=== PATIENT | male | born 1995 | race Caucasian/White ===

== ENCOUNTER 2021-06-01 20:55 | Observation (INO) | payer OTHER ==
[~2021-06-01] VITALS: Ht 177.8 cm; Wt 74.4 kg
[~2021-06-01 20:55] MED LIST: CYCL10TA9 PO
[2021-06-01 21:50] LABS: BILIRUBIN,URINE NEGATIVE (NEGATIVE); CLARITY,URINE CLEAR; COLOR,URINE YELLOW; GLUCOSE, URINE (UA) NEGATIVE (NEGATIVE); KETONES,URINE NEGATIVE (NEGATIVE); LEUKOCYTE ESTERASE ,URINE NEGATIVE (NEGATIVE); NITRITE,URINE NEGATIVE (NEGATIVE); PROTEIN,URINE NEGATIVE (NEGATIVE)
--- NOTE | 2021-06-01 21:55 | ED Abdominal Pain ---
General Chief Complaint: Abdominal/GI Problems Stated Complaint: LOWER BACK PAIN, ABDOMINAL PAIN Nursing Triage Note: c/o mid abdominal/lower back cramping since approx. 1200 today. reports constipation, last bm today. Source of Information: Patient Exam Limitations: No Limitations (SEYMOUR VELÁSQUEZ APRN) History of Present Illness Date Seen by Provider: Jun 01, 2021 Time Seen by Provider: 21:52 Initial Comments To ER with c/o suprapubic abdominal pain since noon today. Hes had a poor appetite so has not eaten since lunch. no fevers, no vomiting though he was nauseated earlier. He initially thought he might be constipated but had two normal BMs today without improvement in symptoms. No urinary symptoms. no flank pain but it does radiate to his low back on both sides. No history of this. Otherwise healthy, no medical history. Had eye surgery as a child for nystagmus he states. Takes no medications. 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 Chews tobacco, drinks 2-3 beers a week. No smoking, no drug use. Timing/Duration: 4-6 Hours Severity/Quality: Moderate Location: Suprapubic Radiation: No Radiation Activities at Onset: None Associated Symptoms: Denies Symptoms (SEYMOUR VELÁSQUEZ APRN) Allergies and Home Medications Allergies Coded Allergies: No Known Drug Allergies (Unverified , 05/31/11) Patient Home Medication List Home Medication List Reviewed: Yes (SEYMOUR VELÁSQUEZ APRN) Hydrocodone/Acetaminophen (Hydrocodone-Acetamin 7.5-325) 1 Each Tablet, 1 EACH PO Q4H Prescribed by: PREM JIMÉNEZ on 06/02/21 1559 Discontinued Medications Cyclobenzaprine Hcl (Cyclobenzaprine Hcl) 10 Mg Tablet, 1 EACH PO Q8HR PRN Discontinued Reason: No Longer Taking Prescribed by: SUNIL WATSON on 06/01/11 0141 Last Action: Discontinued Review of Systems Review of Systems Constitutional: see HPI EENTM: No Symptoms Reported Respiratory: No Symptoms Reported Cardiovascular: No Symptoms Reported Gastrointestinal: See HPI, Abdominal Pain Genitourinary: No Symptoms Reported Musculoskeletal: no symptoms reported Skin: no symptoms reported Psychiatric/Neurological: No Symptoms Reported Endocrine: No Symptoms Reported Hematologic/Lymphatic: No Symptoms Reported (SEYMOUR VELÁSQUEZ APRN) Past Jqsvktw-Xkjqsn-Gcidbg Hx Patient Social History Tobacco Use?: Yes Substance use?: No Alcohol Use?: Yes Alcohol Frequency: Once in a while Pt feels they are or have been: No (SEYMOUR VELÁSQUEZ APRN) Past Medical History Surgery/Hospitalization HX: eye surgery, t/a (SEYMOUR VELÁSQUEZ APRN) Physical Exam Vital Signs Vital Signs - First Documented 06/01/21 21:36 Temp 37.1 Pulse 90 Resp 18 B/P (MAP) 113/60 (77) Pulse Ox 98 O2 Delivery Room Air (FABIOLA,CAROLANN K DO) Vital Signs Capillary Refill : Less Than 3 Seconds (SEYMOUR VELÁSQUEZ APRN) Height/Weight/BMI Height: '" Weight: lbs. oz. kg; 23.00 BMI Method:Stated General Appearance: WD/WN, no apparent distress HEENT: PERRL/EOMI, normal ENT inspection Neck: non-tender, full range of motion Respiratory: no respiratory distress, no accessory muscle use Gastrointestinal: normal bowel sounds, soft, tenderness (suprapubic) Extremities: normal range of motion, non-tender Back: No CVA tenderness (R), No CVA tenderness (L) Neurologic/Psychiatric: alert, normal mood/affect, oriented x 3 Skin: normal color, warm/dry (SEYMOUR VELÁSQUEZ APRN) Progress/Results/Core Measures Results/Orders Lab Results Laboratory Tests Test 06/01/21 21:40 06/01/21 21:50 Range/Units Urine Color YELLOW Urine Clarity CLEAR Urine pH 6.0 5-9 Urine Specific Slater 1.025 H 1.016-1.022 Urine Protein NEGATIVE NEGATIVE Urine Glucose (UA) NEGATIVE NEGATIVE Urine Ketones NEGATIVE NEGATIVE Urine Nitrite NEGATIVE NEGATIVE Urine Bilirubin NEGATIVE NEGATIVE Urine Urobilinogen 1.0 < = 1.0 MG/DL Urine Leukocyte Esterase NEGATIVE NEGATIVE Urine RBC (Auto) NEGATIVE NEGATIVE Urine RBC NONE /HPF Urine WBC NONE /HPF Urine Squamous Epithelial Cells NONE /HPF Urine Renal Epithelial Cells NONE /HPF Urine Crystals NONE /LPF Urine Bacteria NEGATIVE /HPF Urine Casts NONE /LPF Urine Mucus NEGATIVE /LPF Urine Culture Indicated NO White Blood Count 15.1 H 4.3-11.0 10^3/uL Red Blood Count 4.53 4.30-5.52 10^6/uL Hemoglobin 13.9 13.3-17.7 g/dL Hematocrit 40 40-54 % Mean Corpuscular Volume 89 80-99 fL Mean Corpuscular Hemoglobin 31 25-34 pg Mean Corpuscular Hemoglobin Concent 35 32-36 g/dL Red Cell Distribution Width 12.1 10.0-14.5 % Platelet Count 224 130-400 10^3/uL Mean Platelet Volume 11.2 9.0-12.2 fL Immature Granulocyte % (Auto) 0 % Neutrophils (%) (Auto) 80 H 42-75 % Lymphocytes (%) (Auto) 10 L 12-44 % Monocytes (%) (Auto) 9 0-12 % Eosinophils (%) (Auto) 0 0-10 % Basophils (%) (Auto) 0 0-10 % Neutrophils # (Auto) 12.1 H 1.8-7.8 10^3/uL Lymphocytes # (Auto) 1.6 1.0-4.0 10^3/uL Monocytes # (Auto) 1.3 H 0.0-1.0 10^3/uL Eosinophils # (Auto) 0.0 0.0-0.3 10^3/uL Basophils # (Auto) 0.0 0.0-0.1 10^3/uL Immature Granulocyte # (Auto) 0.1 0.0-0.1 10^3/uL Neutrophils % (Manual) 80 % Lymphocytes % (Manual) 10 % Monocytes % (Manual) 10 % Blood Morphology Comment NORMAL Sodium Level 141 135-145 MMOL/L Potassium Level 3.9 3.6-5.0 MMOL/L Chloride Level 103 98-107 MMOL/L Carbon Dioxide Level 22 21-32 MMOL/L Anion Gap 16 H 5-14 MMOL/L Blood Urea Nitrogen 8 7-18 MG/DL Creatinine 0.94 0.60-1.30 MG/DL Estimat Glomerular Filtration Rate 115 BUN/Creatinine Ratio 9 Glucose Level 105 70-105 MG/DL Calcium Level 9.5 8.5-10.1 MG/DL Corrected Calcium 9.1 8.5-10.1 MG/DL Total Bilirubin 0.9 0.1-1.0 MG/DL Aspartate Amino Transf (AST/SGOT) 17 5-34 U/L Alanine Aminotransferase (ALT/SGPT) 20 0-55 U/L Alkaline Phosphatase 61 40-136 U/L Total Protein 7.4 6.4-8.2 GM/DL Albumin 4.5 3.2-4.5 GM/DL (FABIOLA,CAROLANN K DO) Vital Signs/I&O 06/01/21 21:36 Temp 37.1 Pulse 90 Resp 18 B/P (MAP) 113/60 (77) Pulse Ox 98 O2 Delivery Room Air (CAROLANN HICKS DO) 2 Blood Pressure Mean: 77 Departure Communication (Admissions) 2212-Spoke with Dr Jiménez, will admit, NPP after 0200, clear liquids until then. Plan for lap appy tomorrow. will do abx, pain, nausea meds in the interim. Spoke with patient, he is agreeable. (SEYMOUR VELÁSQUEZ APRN) Impression Primary Impression: Appendicitis Disposition: ADMITTED INPATIENT Condition: Stable Admissions Decision to Admit Reason: Admit from ER (General) Decision to Admit/Date: Jun 01, 2021 Time/Decision to Admit Time: 22:06 (SEYMOUR VELÁSQUEZ APRN) Departure-Patient Inst. Referrals: RYAN ZHANG DO (PCP/Family) Primary Care Physician Scripts Hydrocodone/Acetaminophen (Hydrocodone-Acetamin 7.5-325) 1 Each Tablet 1 EACH PO Q4H, #35 TAB Prov: PREM JIMÉNEZ MD 06/02/21 ATTENDING PHYSICIAN NOTE: I WAS PHYSICALLY PRESENT ER PHYSICIAN, BUT I WAS NOT INVOLVED IN ANY DECISION MAKING OR ANY CARE OF THIS PATIENT. (CAROLANN HICKS DO) SEYMOUR VELÁSQUEZ APRN Jun 01, 2021 21:55 CAROLANN HICKS DO Jun 05, 2021 18:23
[2021-06-01 21:59] LABS: BACTERIA,URINE NEGATIVE /HPF
[2021-06-01 21:59] LABS: BASOPHILS % (AUTO) 0 % (0-10); EOSINOPHILS % (AUTO) 0 % (0-10); HEMATOCRIT 40 % (40-54); HEMOGLOBIN 13.9 g/dL (13.3-17.7); LYMPHOCYTES # (AUTO) 1.6 10^3/uL (1.0-4.0); LYMPHOCYTES % (AUTO) 10 % (12-44); MEAN CORPUSCULAR HEMOGLOBIN 31 pg (25-34); MEAN CORPUSCULAR HGB CONC 35 g/dL (32-36); MEAN CORPUSCULAR VOLUME 89 fL (80-99); MEAN PLATELET VOLUME 11.2 fL (9.0-12.2); MONOCYTES # (AUTO) 1.3 10^3/uL (0.0-1.0); MONOCYTES % (AUTO) 9 % (0-12); NEUTROPHILS # (AUTO) 12.1 10^3/uL (1.8-7.8); NEUTROPHILS % (AUTO) 80 % (42-75); PLATELET COUNT 224 10^3/uL (130-400); WHITE BLOOD COUNT 15.1 10^3/uL (4.3-11.0)
[2021-06-01] MEDS ORDERED: KETOROLAC 30 MG/ML VIAL IVP ONE (22:00)
[2021-06-01 22:03] LABS: ALBUMIN 4.5 GM/DL (3.2-4.5); POTASSIUM 3.9 MMOL/L (3.6-5.0)
[2021-06-01 22:04] LABS: CALCIUM 9.5 MG/DL (8.5-10.1)
[2021-06-01 22:05] LABS: TOTAL PROTEIN 7.4 GM/DL (6.4-8.2)
[2021-06-01 22:07] LABS: BILIRUBIN,TOTAL 0.9 MG/DL (0.1-1.0)
--- NOTE | 2021-06-01 22:08 | Diagnostic Imaging Report ---
PROCEDURE: CT urinary tract, rule out kidney stone. TECHNIQUE: Multiple contiguous axial images were obtained through the abdomen and pelvis without the use of intravenous contrast. Auto Exposure Controls were utilized during the CT exam to meet ALARA standards for radiation dose reduction. INDICATION: Abdominal pain. COMPARISON: None. FINDINGS: The heart is unremarkable. The lung bases are clear. The liver, spleen, pancreas, adrenal glands and kidneys have a normal appearance. There is no pathologically enlarged mesenteric or retroperitoneal adenopathy. The bowel loops are nondilated. The appendix is dilated measuring 0.9 cm with mild periappendicular fat stranding. There is no free fluid or free air. No acute osseous abnormalities. Ureters and bladder are normal. There is no free air, loculated collection, or adenopathy in the pelvis. IMPRESSION: Findings suggestive of acute uncomplicated appendicitis. No evidence of perforation or abscess. Recommend surgical consultation and follow-up, as indicated. Dictated by: Dictated on workstation # [id number]
[2021-06-01 22:09] LABS: CREATININE SERUM 0.94 MG/DL (0.60-1.30)
[2021-06-01 22:14] LABS: LYMPHOCYTES % (MANUAL) 10 %; MONOCYTES % (MANUAL) 10 %; NEUTROPHILS % (MANUAL) 80 %; RBC MORPH NORMAL
[2021-06-01] MEDS ORDERED: fentaNYL INJ 100 MCG/2 ML AMP IVP ONE (22:15)
[2021-06-01] MEDS ORDERED: fentaNYL INJ 100 MCG/2 ML AMP IV PRN (23:15)
[2021-06-01] MEDS ORDERED: ACETAMINOPHEN 325 MG TABLET PO PRN (23:15)
[2021-06-01] MEDS ORDERED: ONDANSETRON 4 MG/2 ML (SDV) Z0FRAN IV PRN (23:15)
[2021-06-01 23:42] VITALS: BP 127/68
[2021-06-01] MEDS: metroNIDAZOLE 500 MG/100 ML IVPB (PRE-MIX) IV SCH (23:55)
[2021-06-01] MEDS: CIPROFLOXACIN 400 MG/D5W 200 ML (PRE-MIX) IV SCH (23:55)
[2021-06-01] MEDS: LACTATED RINGERS 1,000 ML IV SCH (23:55)
[2021-06-02] VITALS (10 sets, daily range): BP systolic 99–133; BP diastolic 46–79
[2021-06-02 05:58] LABS: BASOPHILS % (AUTO) 0 % (0-10); EOSINOPHILS % (AUTO) 0 % (0-10); HEMATOCRIT 37 % (40-54); HEMOGLOBIN 12.5 g/dL (13.3-17.7); LYMPHOCYTES # (AUTO) 1.8 10^3/uL (1.0-4.0); LYMPHOCYTES % (AUTO) 19 % (12-44); MEAN CORPUSCULAR HEMOGLOBIN 30 pg (25-34); MEAN CORPUSCULAR HGB CONC 34 g/dL (32-36); MEAN CORPUSCULAR VOLUME 89 fL (80-99); MEAN PLATELET VOLUME 11.6 fL (9.0-12.2); MONOCYTES % (AUTO) 11 % (0-12); NEUTROPHILS # (AUTO) 6.4 10^3/uL (1.8-7.8); NEUTROPHILS % (AUTO) 69 % (42-75); PLATELET COUNT 181 10^3/uL (130-400); WHITE BLOOD COUNT 9.2 10^3/uL (4.3-11.0)
[2021-06-02 06:11] LABS: CALCIUM 9.1 MG/DL (8.5-10.1); CREATININE SERUM 0.89 MG/DL (0.60-1.30); POTASSIUM 3.8 MMOL/L (3.6-5.0)
[2021-06-02] MEDS: LACTATED RINGERS 1,000 ML IV SCH ×2 (08:38→14:52)
[2021-06-02] MEDS: metroNIDAZOLE 500 MG/100 ML IVPB (PRE-MIX) IV SCH (08:45)
[2021-06-02] MEDS: CIPROFLOXACIN 400 MG/D5W 200 ML (PRE-MIX) IV SCH (08:45)
--- NOTE | 2021-06-02 09:43 | Progress Note-Pre Operative ---
Pre-Operative Progress Note H&P Reviewed The H&P was reviewed, patient examined and no changes noted. Date Seen by Provider: Jun 02, 2021 Time Seen by Provider: 09:30 Date H&P Reviewed: Jun 02, 2021 Time H&P Reviewed: 09:30 Pre-Operative Diagnosis: acute appendicitis PREM RAGSDALE MD Jun 02, 2021 09:43
--- NOTE | 2021-06-02 09:48 | HISTORY AND PHYSICAL ---
DATE OF SERVICE: ADMITTING PRIMARY CARE PHYSICIAN: Jeremy De Jesus DO HISTORY OF PRESENT ILLNESS: The patient is a 26-year-old male who presented to the Emergency Department with suprapubic pain with radiation towards the back. He states that it had started earlier that day and he had a poor appetite. He initially thought that this was due to constipation and had two bowel movements without any improvement of symptoms. He states that he was urinating in a normal manner as well. He did not report any fever, no chills. A CT scan was performed, which did show a dilated appendix consistent with noncomplicated appendicitis. PAST MEDICAL HISTORY: History of nystagmus. PAST SURGICAL HISTORY: Correction of his nystagmus. ALLERGIES: No known drug allergies. MEDICATION: Cyclobenzaprine p.r.n. SOCIAL HISTORY: Positive chewing tobacco. Social alcohol. FAMILY HISTORY: Noncontributory. VITAL SIGNS: Temperature 36.4, blood pressure 103/51, pulse 84, respirations 16, pulse ox 99% on room air. REVIEW OF SYSTEMS: Well-nourished male currently in no acute distress. He is not experiencing any shortness of breath or difficulty breathing. No chest pain, palpitations, diaphoresis. Some loss of appetite, however no nausea, no vomiting. No diarrhea, constipation, no red blood per rectum, no dark tarry stools. No fever, chills, no recent inadvertent weight loss. All other review of systems negative. PHYSICAL EXAMINATION: CHEST: Clear. Good breath sounds bilaterally. HEART: Regular, no murmurs. EXTREMITIES: No lower extremity edema, negative Homans sign. HEENT: No scleral icterus. NECK: No cervical lymphadenopathy. ABDOMEN: Soft, nondistended, mild pain in the right lower abdominal quadrant. No peritoneal signs. SKIN: Warm, dry. LABORATORY DATA: WBC 9.2, hemoglobin 12.5, hematocrit 37, platelets 181. BUN 8, creatinine 0.89. ASSESSMENT AND PLAN: A 26-year-old male with acute appendicitis, which is not complicated. We will proceed with IV fluids and IV antibiotics as well as schedule him for a laparoscopic appendectomy on this admission. Job ID: [id number] DocumentID: [id number] Dictated Date: 06/02/2021 09:34:09 Monotyper Date: 06/02/2021 09:47:36 Dictated By: PREM RAGSDALE MD HEALTH SYSTEMMartinez
[2021-06-02] MEDS ORDERED: ROCURONIUM 10 MG/ML 5 ML SYRINGE IV ONE (15:40)
[2021-06-02] MEDS ORDERED: NEOSTIGMINE 3 MG/3 ML VIAL ONE (15:40)
[2021-06-02] MEDS ORDERED: proPOfol 200 MG/20 ML (DIPRIVAN) VIAL IV ONE (15:40)
[2021-06-02] MEDS ORDERED: GLYCOPYRROLATE 0.2 MG/ML (ROBINUL) 2 ML VIAL ONE (15:40)
[2021-06-02] MEDS ORDERED: LIDOCAINE PF 2% 5 ML (XYLOCAINE) VIAL ONE (15:40)
[2021-06-02] MEDS ORDERED: ONDANSETRON 4 MG/2 ML (SDV) Z0FRAN ONE (15:40)
[2021-06-02] MEDS ORDERED: fentaNYL INJ 100 MCG/2 ML AMP ONE (15:41)
[2021-06-02] MEDS ORDERED: MIDAZOLAM 2 MG/2 ML (VERSED) VIAL ONE (15:41)
[2021-06-02] MEDS ORDERED: HYDR-3817 PO (15:59)
--- NOTE | 2021-06-02 15:59 | Discharge Inst-Surgical ---
D/C Lap Instructions-MELYSSA New, Converted, or Re-Newed RX: RX on Chart Follow Up Activity as tolerated Regular Diet Symptoms to Report: Fever over 101 degree F, Nausea/Vomiting Infection Signs and Symptoms to report: Increased redness, Foul odor of wound, Increased drainage Bathing instructions: May shower Operative Area Clean/Dry; Keep incision clean/dry If any problems/questions: Contact your physician or go to Emergency Room PREM RAGSDALE MD Jun 02, 2021 15:59
[2021-06-02] MEDS ORDERED: ceFAZolin INJECTION 1,000 MG VIAL IV NR (16:00)
[2021-06-02] MEDS ORDERED: LIDOCAINE/EPI 2% 1:200,00 (XYLOCAINE) 20 ML VIAL ONE (16:25)
[2021-06-02] MEDS ORDERED: SEVOFLURANE (ULTANE) 15 ML INHAL SOLN ONE (16:42)
[2021-06-02] MEDS ORDERED: LACTATED RINGERS 1,000 ML IV PRN (16:45)
--- NOTE | 2021-06-02 16:47 | Progress Note-Post Operative ---
Post-Operative Progess Note Surgeon (s)/Water Pumper (s) Surgeon PREM RAGSDALE MD Water Pumper: leela jackson HEAD COUNSELOR Pre-Operative Diagnosis acute appendicitis Post-Operative Diagnosis same Procedure & Operative Findings Date of Procedure 06/02/21 Procedure Performed/Findings laparoscopic appendectomy Anesthesia Type get Estimated Blood Loss Estimated blood loss (mL): minimal Specimens/Packing Specimens Removed appendix PREM RAGSDALE MD Jun 02, 2021 16:47
[2021-06-02] MEDS ORDERED: HYDROcodone/APAP 7.5 MG/325 MG (LORTAB, LORCET PLUS) TABLET PO PRN (17:00)
[2021-06-02] MEDS ORDERED: MEPERIDINE (DEMEROL) INJ 50 MG/ML IVP ONE (17:00)
[2021-06-02] MEDS ORDERED: PROMETHAZINE INJ 25 MG/ML (PHENERGAN) AMP IVP ONE (17:00)
[2021-06-02] MEDS ORDERED: morphine INJ 10 MG/ML 1ML (SYR OR VIAL) IVP ONE (17:00)
[2021-06-02] MEDS ORDERED: ONDANSETRON 4 MG/2 ML (SDV) Z0FRAN IVP PRN (17:00)
--- NOTE | 2021-06-02 17:00 | Anesthesia-General Post-Op ---
General Patient Condition Mental Status/LOC: Same as Preop Cardiovascular: Satisfactory Nausea/Vomiting: Absent Respiratory: Satisfactory Pain: Controlled Complications: Absent Post Op Complications Complications None Follow Up Care/Instructions Patient Instructions None needed. Anesthesia/Patient Condition Patient Condition Patient is doing well, no complaints, stable vital signs, no apparent adverse anesthesia problems. No complications reported per nursing. SOLIS NAIR CRNA Jun 02, 2021 17:00
--- NOTE | 2021-06-02 21:29 | OPERATIVE REPORT ---
DATE OF SERVICE: 06/02/2021 ATTENDING PRIMARY CARE PHYSICIAN: Charissa De Jesus DO PREOPERATIVE DIAGNOSIS: Acute appendicitis. POSTOPERATIVE DIAGNOSIS: Acute appendicitis. PROCEDURE: Laparoscopic appendectomy. SURGEON: Prem Ragsdale MD HEAD OF VISUAL MERCHANDISING: Mika Gibson APRN ANESTHESIA: General endotracheal. ESTIMATED BLOOD LOSS: Minimal. FINDINGS: Inflamed appendix, no perforation. No Meckel's diverticulum. DISPOSITION: The patient tolerated the procedure well. INDICATIONS: The patient is a 26-year-old male who presented to the Emergency Department with suprapubic pain with radiation towards the back. He stated that this had started earlier in the day and this was also associated with poor appetite; however, he was able to eat without any nausea, no vomiting. He thought this was initially due to constipation and did have two bowel movements without any improvement of his symptoms. He also did not report any fever, no chills; however, the pain persisted and worsened over time. He decided to present to the Emergency Department where a CT scan was performed and did show a dilated appendix consistent with a noncomplicated appendicitis. DESCRIPTION OF PROCEDURE: The patient was brought to the operating room, laid supine on the table. After adequate IV pain and sedative medications and general endotracheal intubation, the abdomen was prepped and draped in standard surgical fashion. A 0.5% Marcaine with epinephrine was used to anesthetize the overlying skin in the left upper abdominal quadrant and a transverse skin incision made using a 15 blade. An 0 silk suture was applied to the medial aspect incision for retraction and a Veress needle inserted with a low opening pressure of 0 mmHg and the abdomen was then insufflated to 15 mmHg pressure. The Veress needle removed and a 5 mm XL trocar placed followed by a 5 mm 45-degree angle laparoscope visualizing the peritoneal cavity. A 4-quadrant abdominal exploration was performed. There was an inflamed appendix with increased turgor pressure. No perforation. Small bowel appeared normal with no signs of any Meckel's diverticulum. Under direct visualization, we then proceed to place a supraumbilical 10 mm port after the skin and peritoneal lining were anesthetized using 0.5% Marcaine with epinephrine and a transverse skin incision made using a 15 blade. In a similar manner, a suprapubic 5 mm port was placed. The patient was then placed in Trendelenburg position as well as plane right side up, left side down. The appendix was then retracted towards the anterior abdominal wall and a window created between the base of the appendix and the mesoappendix using a [place] dissector. The appendix was then stapled and transected with a ERLIN 45 mm stapler with a 2.5 mm thickness load at the cecal base. The mesoappendix was then stapled and transected with the same stapler with a 2.0 mm thickness reload with visualization of good hemostasis. The appendix was removed through the 10 mm port site using an EndoCatch bag. The 10 mm port site fascia and peritoneum were then closed under direct visualization using a Con-Gladys device and 0 Vicryl suture. The abdomen was desufflated and remaining ports removed. All skin incisions were closed using 4-0 Monocryl running subcuticular sutures. Wounds were then cleaned and covered with Dermabond. The patient tolerated the procedure well. We will start IV and oral pain medication as well as a clear liquid diet. Once he is tolerating clears, he has good pain control with oral pain medications, ambulating well. He will be discharged home, will be instructed to do no heavy lifting or exertion for the next two weeks. Job ID: [id number] DocumentID: [id number] Dictated Date: 06/02/2021 16:52:19 Plaster Patternmaker Date: 06/02/2021 21:29:27 Dictated By: PREM RAGSDALE MD
== END 2021-06-02 18:55 | disposition home or self-care (01) ==
LOC: EDUNIT# 20:55 → ER 20:56 → 4TH 22:07
PROVIDERS: ADMIT Surgery; ATTEND Surgery
DX: K35.80 Unspecified acute appendicitis (principal); Z79.891 Long term (current) use of opiate analgesic
CPT/HCPCS: 36415; 74176; 80048; 80053; 81000; 85007; 85025; 85027; 96374; 96375; 96376